=== PATIENT | female | born 1990 | race Caucasian/White ===

== ENCOUNTER 2020-03-21 19:47 | Emergency (ER) | payer SELFPAY ==
[~2020-03-21] VITALS: Ht 157.5 cm; Wt 90.9 kg
[2020-03-21 19:52] VITALS: BP 135/80
[2020-03-21] MEDS ORDERED: IV NORMAL SALINE 1000ML BAG 1,000 ML IV SCH (20:02)
[2020-03-21 20:10] LABS: BILIRUBIN,URINE NEGATIVE (NEG); CLARITY,URINE CLEAR; COLOR,URINE YELLOW; NITRITE,URINE NEGATIVE (NEG); PROTEIN,URINE 30 mg/dL (NEG-TRACE); UROBILINOGEN,URINE 0.2 mg/dL (0.2 mg/dL)
[2020-03-21 20:17] LABS: AMORPHOUS SEDIMENT,UR PRESENT /HPF; BACTERIA,URINE FEW /HPF (0-FEW); SQUAMOUS EPITHELIAL CELL,UR MANY /LPF; WBC,URINE TNTC /HPF (0-4)
--- NOTE | 2020-03-21 20:31 | PHYS DOC ---
Past Medical History Past Medical History: No Pertinent History Past Surgical History: No Surgical History Smoking Status: Former Smoker Alcohol Use: None General Adult EDM: Chief Complaint: VAGINAL BLEEDING HPI: HPI: Patient is a 29 year old female who presents with states that her last menstrual period was around February 09. She states she has not seen a tax preparer. She states that for the last week she is noticed some low mid abdominal cramping that is progressively gotten worse than a menstrual. Cramping. She states this morning she awoke to a small puddle of blood under her. Patient states she went to a clinic who stated that yes she is and that she needed follow-up. She states that she was also diagnosed with a urinary tract infection. She states that that clinic sent a prescription to a pharmacy of which she is not sure where. Patient rates her pain a 7 out of 10. She states she has not taken any medication for this. Patient denies fever, diarrhea, dysuria, STD concerns, back pain, nausea, vomiting, dizziness, headache. She states she does not have any sexually transmitted disease concerns at this time. She states she does not want to be treated prophylactically at this time. Patient is educated that she will be called in 48 hours only if they come back positive. Patient states her understanding. Review of Systems: Review of Systems: GI: abdominal pain, denies nausea, vomiting, bloody stools or diarrhea. [] : Denies dysuria. Vaginal bleeding [] Heart Score: Risk Factors: Risk Factors: DM, Current or recent (<one month) smoker, HTN, HLP, family history of CAD, obesity. Risk Scores: Score 0 - 3: 2.5% MACE over next 6 weeks - Discharge Home Score 4 - 6: 20.3% MACE over next 6 weeks - Admit for Clinical Observation Score 7 - 10: 72.7% MACE over next 6 weeks - Early Invasive Strategies Current Medications: Current Medications Medications (Trade) Dose Ordered Sig/[facility] Start Time Stop Time Status Last Admin Dose Admin Sodium Chloride 1,000 ml @ 1,000 mls/hr Q1H 03/21/20 20:02 03/21/20 21:01 Allergies: Allergies: Allergies Coded Allergies Type Severity Reaction Last Updated Verified No Known Drug Allergies 03/21/20 No Physical Exam: PE: Constitutional: Well developed, well nourished, no acute distress, non-toxic appearance. [] HENT: Normocephalic, atraumatic, bilateral external ears normal, oropharynx moist, no oral exudates, nose normal. [] Eyes: PERRLA, EOMI, conjunctiva normal, no discharge. [] Neck: Normal range of motion, no tenderness, supple, no stridor. [] Cardiovascular:Heart rate regular rhythm, no murmur [] Lungs & Thorax: Bilateral breath sounds clear to auscultation [] Abdomen: Bowel sounds normal, soft, no tenderness, no masses, no pulsatile masses. [] Skin: Warm, dry, no erythema, no rash. [] Back: No tenderness, no CVA tenderness. [] Extremities: No tenderness, no cyanosis, no clubbing, ROM intact, no edema. [] Neurologic: Alert and oriented X 3, normal motor function, normal sensory function, no focal deficits noted. [] Psychologic: Affect normal, judgement normal, mood normal. Normal physical exam [] Current Patient Data: Labs: Laboratory Tests Test 03/21/20 19:35 03/21/20 19:58 Urine Collection Type Void Urine Color Yellow Urine Clarity Clear Urine pH 6.0 (<5.0-8.0) Urine Specific [place] 1.010 (1.000-1.030) Urine Protein 30 mg/dL (NEG-TRACE) Urine Glucose (UA) Negative mg/dL (NEG) Urine Ketones (Stick) Negative mg/dL (NEG) Urine Blood Large (NEG) Urine Nitrite Negative (NEG) Urine Bilirubin Negative (NEG) Urine Urobilinogen Dipstick 0.2 mg/dL (0.2 mg/dL) Urine Leukocyte Esterase Large (NEG) Urine RBC 3-5 /HPF (0-2) Urine WBC Tntc /HPF (0-4) Urine Squamous Epithelial Cells Many /LPF Urine Amorphous Sediment Present /HPF Urine Bacteria Few /HPF (0-FEW) POC Urine HCG, Qualitative Hcg positive (Negative) Vital Signs: Vital Signs Date Time Temp Pulse Resp B/P (MAP) Pulse Ox O2 Delivery O2 Flow Rate FiO2 03/21/20 19:52 98.3 94 17 135/80 (98) 98 Room Air 98.3 EKG: EKG: [] Radiology/Procedures: Radiology/Procedures: [] Impression: [facility] [address] [place] [address] IMAGING REPORT Signed PATIENT: SUZI SIMON ACCOUNT: [id number] : 1990 LOCATION: ER AGE: 29 SEX: F EXAM STATUS: PRE ER ORD. PHYSICIAN: EUGENE SIN APRN REASON: VAGINAL BLEEDING IN PROCEDURE: OB TRANSVAG Transvaginal ultrasound the pelvis. HISTORY: Vaginal bleeding and Transvaginal imaging was performed. Uterus measures 10.1 x 5.3 x 4.5 cm. Endometrium is thickened but an intrauterine gestation is not identified. There is a tiny cystic focus at the cervix which could be an of both and cyst but is fairly low in gestation at the lower is cervical os would be possible. There is no free fluid in the pelvis. An adnexal mass is not identified. Right ovary measures 2.8 x 2.4 x 1.6 cm and appears normal. There is flow in the right ovary with color imaging and Doppler. Left ovary was not identified due to bowel gas. IMPRESSION: 1. Endometrial thickening but a gestation is not definitively identified. 2. Tiny gestation near the os versus nabothian cyst. 3. Normal right ovary. 4. Left ovary not identified. 5. No adnexal mass or free fluid noted. 6. Follow-up hCGs would be of benefit. Electronically signed by: Carlos Torres MD (03/21/2020 9:17 PM) [facility] DICTATED and SIGNED BY: CARLOS TORRES MD DATE: 03/21/202116 Course & Med Decision Making: Course & Med Decision Making Pertinent Labs and Imaging studies reviewed. (See chart for details) Abdomen soft and nontender. Alert and oriented. Skin pink warm and dry. Vital signs within normal limits. Patient is O negative. I have ordered RHogam. Pelvic Exam: [employer] Director present Abdomen: Nontender External Genitalia: Normal Skin Speculum: Normal vaginal mucosa, bloody cervical discharge Bimanual: No adnexal masses or tenderness, No CMT [] Dragon Disclaimer: Dragon Disclaimer: This electronic medical record was generated, in whole or in part, using a voice recognition dictation system. Departure Departure Impression: Primary Impression: UTI (urinary tract infection) Qualified Codes: N39.0 - Urinary tract infection, site not specified Additional Impression: Vaginal bleeding during Disposition: HOME, SELF-CARE Condition: STABLE Referrals: EDA SERRANO Jr, MD Patient Instructions: - Urinary Tract Infection, Threatened Miscarriage, [id number], Vaginal Bleeding During , [id number] Additional Instructions: Take medications with food. Drink plenty of fluids. Take Tylenol for pain. Follow-up with an OB as soon as possible. Scripts Cephalexin (KEFLEX) 500 Mg Capsule 1 CAP PO BID for 7 Days, #14 CAP 0 Refills Prov: EUGENE SIN APRN 03/21/20 EUGENE SIN APRN March 21, 2020 20:31
[2020-03-21 20:47] LABS: BASO % 0 % (0-3); EOS # 0.1 x10^3/uL (0.0-0.7); EOS % 1 % (0-3); HEMATOCRIT 39.2 % (36.0-47.0); HEMOGLOBIN 13.4 g/dL (12.0-15.5); LYMPH # 2.4 x10^3/uL (1.0-4.8); LYMPH % 20 % (24-48); MEAN CORPUSCULAR HEMOGLOBIN 33 pg (25-35); MEAN CORPUSCULAR HGB CONC 34 g/dL (31-37); MEAN CORPUSCULAR VOLUME 96 fL (79-100); MONO # 0.9 x10^3/uL (0.0-1.1); MONO % 8 % (0-9); NEUT # 8.4 x10^3/uL (1.8-7.7); NEUT % 71 % (31-73); PLATELET COUNT 355 x10^3/uL (140-400); RED BLOOD COUNT 4.07 x10^6/uL (3.50-5.40); RED CELL DISTRIBUTION WIDTH 14.3 % (11.5-14.5); WHITE BLOOD COUNT 11.9 x10^3/uL (4.0-11.0)
[2020-03-21 20:54] LABS: CALCIUM 8.8 mg/dL (8.5-10.1); CREATININE 0.8 mg/dL (0.6-1.0); GFR 85.4; POTASSIUM 3.1 mmol/L (3.5-5.1)
[2020-03-21 20:59] LABS: PROTHROMBIN TIME PATIENT 13.2 SEC (11.7-14.0)
[2020-03-21] MEDS ORDERED: ACETAMINOPHEN 325 MG TABLET. PO ONE (21:00)
[2020-03-21 21:01] LABS: ALBUMIN 3.5 g/dL (3.4-5.0); ALBUMIN/GLOBULIN RATIO 1.2 (1.0-1.7); TOTAL BILIRUBIN 0.1 mg/dL (0.2-1.0); TOTAL PROTEIN 6.5 g/dL (6.4-8.2)
--- NOTE | 2020-03-21 21:20 | RAD ---
Transvaginal ultrasound the pelvis. HISTORY: Vaginal bleeding and Transvaginal imaging was performed. Uterus measures 10.1 x 5.3 x 4.5 cm. Endometrium is thickened but an intrauterine gestation is not identified. There is a tiny cystic focus at the cervix which could be an of both and cyst but is fairly low in gestation at the lower is cervical os would be possible. There is no free fluid in the pelvis. An adnexal mass is not identified. Right ovary measures 2.8 x 2.4 x 1.6 cm and appears normal. There is flow in the right ovary with color imaging and Doppler. Left ovary was not identified due to bowel gas. IMPRESSION: 1. Endometrial thickening but a gestation is not definitively identified. 2. Tiny gestation near the os versus nabothian cyst. 3. Normal right ovary. 4. Left ovary not identified. 5. No adnexal mass or free fluid noted. 6. Follow-up hCGs would be of benefit. Electronically signed by: Carlos Torres MD (03/21/2020 9:17 PM) [facility]
[2020-03-21] MEDS ORDERED: CEPH-264 PO (21:29)
[2020-03-23 19:09] LABS: GC PROBE Negative (Negative)
== END 2020-03-21 21:40 | disposition home or self-care (01) ==
LOC: ER 19:47
DX: O23.41 Unspecified infection of urinary tract in pregnancy, first trimester (principal); O46.91 Antepartum hemorrhage, unspecified, first trimester; R10.30 Lower abdominal pain, unspecified; Z87.891 Personal history of nicotine dependence; Z3A.01 Less than 8 weeks gestation of pregnancy
CPT/HCPCS: 76817; 80053; 81001; 81025; 84702; 85025; 85610; 86850; 86900; 86901; 87086; 87491; 87591; 99284; Q0111; 36415